=== PATIENT | male | born 1930 | race Caucasian/White ===

== ENCOUNTER 2018-07-25 14:07 | Inpatient (IN) | payer OTHER ==
[~2018-07-25] VITALS: Ht 167.6 cm; Wt 104.5 kg
--- NOTE | 2018-07-25 14:49 | NUR ---
PATIENT BIBA ALS FROM FACILITY FOR C/O PALPITATIONS AND NAUSEA 45 MIN [facility] [facility]. PATIENT WAS IN REHAB FACILITY POST TC. PATIENT DOES HAVE A C-COLLAR ON. PATIENT DOES HAVE A PICC LINE AND PER PATIENT, PICC LINE HAS BEEN IN USE OF THIS MORNING. PATIENT HAS HX OF A-FIB, DOES HAVE A CARDIAC PACER. PER MEDIC, PATIENT INITIALLY HAD TACHYCARDIA WITH PALPITATIONS AND FEVER, UPON ASSESSMENT PATIENT IS IS AT HR 85 AND TEMP WNL. BREATHING IS E/U BILATERAL CHEST RISE. BED SET AT LOWEST LEVEL. DAUGHTERS ALL AT BEDSIDE. AWAITING MSE
--- NOTE | 2018-07-25 14:53 | NUR ---
DR. MARS AT BEDSIDE PERFORMED MSE
--- NOTE | 2018-07-25 16:02 | NUR ---
ACCESSED PICC LINE. WAS ABLE TO FLUSH FLUIDS WITH NO SIGNS OF INFILTRATION. ASHLEY BLOOD FROM PICC LINE. PATIENT TOLERATED WELL
[2018-07-25 16:13] LABS: microscopic required? NO
[2018-07-25 16:21] LABS: BASOPHIL % 0.5 % (0-2); PLATELET COUNT 278 x10^3mcL (130-400)
[2018-07-25 16:21] LABS: UA SPECIFIC GRAVITY 1.015 (1.005-1.035); urine erythrocyte NEGATIVE (NEGATIVE)
[2018-07-25 16:22] LABS: RED CELL DISTRIBUTION WIDTH 15.8 % (11.5-14.5)
[2018-07-25 16:32] LABS: CALCIUM 8.9 mg/dL (8.5-10.1); CARBON DIOXIDE 29.8 mmol/L (21-32); CHLORIDE SERUM 104 mmol/L (98-107); CREATININE SERUM 0.8 mg/dL (0.7-1.3); GLUCOSE SERUM 125 mg/dL (74-106); POTASSIUM SERUM 4.3 mmol/L (3.5-5.1); SODIUM SERUM 142 mmol/L (136-145)
[2018-07-25 16:44] LABS: ALKALINE PHOSPHATASE 78 U/L (46-116); ALT/SGPT 25 U/L (16-63); AST/SGOT 21 U/L (15-37); BILIRUBIN TOTAL 0.49 mg/dL (0.20-1.00); HDL CHOLESTEROL 47 mg/dL (40-60); LIPASE 672 IU/L (73-393)
[2018-07-25 16:49] LABS: ALBUMIN 2.9 g/dL (3.4-5.0); AMYLASE 158 U/L (25-115); CHOLESTEROL 109 mg/dL (<200)
[2018-07-25 17:47] LABS: AMPHETAMINE QUAL UR NONE DETECTED (See below)
[2018-07-25] MEDS ORDERED: DURAGESIC100 MCG/HR TOP (18:05)
[2018-07-25] MEDS ORDERED: ACIDOPHILUS1 EAC2 PO (18:05)
[2018-07-25] MEDS ORDERED: TOPROL XL25 MG PO (18:06)
[2018-07-25] MEDS ORDERED: LIDODERM51 TOP (18:06)
[2018-07-25] MEDS ORDERED: LIPITOR40 MG PO (18:06)
[2018-07-25] MEDS ORDERED: MIRALAX17 GM PO (18:06)
[2018-07-25] MEDS ORDERED: PREVACID30 M2 PO (18:07)
[2018-07-25] MEDS ORDERED: NAMENDA10 M2 PO (18:07)
[2018-07-25] MEDS ORDERED: PEPCID20 MG PO (18:07)
[2018-07-25] MEDS ORDERED: XALATAN2.5 ML OU (18:08)
[2018-07-25] MEDS ORDERED: LOV40I SQ (18:08)
[2018-07-25] MEDS ORDERED: THERA-M W/MINER1 TAB PO (18:08)
[2018-07-25] MEDS ORDERED: DICLOFENAC SOD2.5 ML TOP (18:09)
[2018-07-25] MEDS ORDERED: VITAMIN C500 M6 PO (18:09)
[2018-07-25] MEDS ORDERED: ANTACID ULTRA PO (18:10)
[2018-07-25] MEDS ORDERED: FLEET ENEMA135 ML RC (18:11)
[2018-07-25] MEDS ORDERED: DULCOLAX10 M1 RC (18:11)
[2018-07-25] MEDS ORDERED: MAALOX ADVANCE355 ML PO (18:12)
[2018-07-25] MEDS ORDERED: HYDRALAZINE HCL25 MG PO (18:12)
[2018-07-25] MEDS ORDERED: GOOD NEIGH1200 MG/15 PO (18:13)
[2018-07-25] MEDS ORDERED: APAP325 MG PO (18:13)
[2018-07-25] MEDS ORDERED: HYDROCODONE BITA PO (18:14)
--- NOTE | 2018-07-25 18:22 | NUR ---
PT RESTING AT BEDSIDE IN NAD. BREATHING E/U, BILATERAL CHEST RISE. BED AT LOWEST POSITION. PATIENT REQUESTED THE HOB TO BE UP 10 DEGREES FOR COMFORT. PATIENT STS 0/10. STS THE C-COLLAR IS TOLERABLE. HAS BEEN AT BEDSIDE. LIGHTS DIMMED TO PROMOTE PATIENT COMFORT
--- NOTE | 2018-07-25 19:02 | NUR ---
REPORT OFF TO JHONATAN, RN
--- NOTE | 2018-07-25 19:11 | NUR ---
RECEIVED PATIENT AWAKE, ALERT, DENIES PAIN, PALPITATIONS OR DISCOMFORT. C-COLLAR IN PLACE. RESPIRATIONS EVEN AND UNLABORED. SAFETY PRECAUTIONS IN PLACE.
[2018-07-25 19:31] LABS: MAGNESIUM 1.5 mg/dL (1.8-2.4)
[2018-07-25 19:36] LABS: CHOLESTEROL/HDL RATIO 2.4
--- NOTE | 2018-07-25 20:01 | NUR ---
REPORT GIVEN TO SAY BLAIR, ALL QUESTIONS AND CONCERNS WERE ADDRESSED.
--- NOTE | 2018-07-25 20:13 | NUR ---
RECEIVED PT FROM ED VIA NICOLASA, CAME IN DUE TO PALPITATIONS. AAOX4. DENIES HEADACHE/DIZZINESS. ABLE TO FOLLOW COMMANDS. DENIES NUMBNESS/TINGLING SENSATION ON THE EXTREMITIES. NO SOB NOTED, LUNG SOUNDS CTA. ON 2LPM/NC, O2 SAT=99%. DENIES CHEST PAIN/PRESSURE, AFIB W/ BBB, ELEVATED ST, PACED ON DEMAND. W/ LEFT CHEST PACEMAKER ([employer]). W/ +1 EDEMA ON BLE. WEAK PEDAL PULSES. VOIDS. DENIES ABDOMINAL DISCOMFORT. BOWEL SOUNDS ACTIVE. W/ BROWN DISCOLORATIONS ON BLE AND STERIS-TRIPS ON THE UPPER MID-BACK, PT STATED THAT THE SUTURES WERE JUST REMOVED FEW DAYS AGO. W/ RIGHT UPPER CHEST DUAL-PORT POWER PICC LINE. W/ CERVICAL NECK COLLAR. ABLE TO MOVE ALL EXTREMITIES. SIDE RAILS UPX2. CALL LIGHT ON REACH. HOB ELEVATED AT 20 DEG. PRIMARY NURSE SAY AT BEDSIDE FOR CONTINUITY OF CARE
[2018-07-25 20:39] VITALS: BP 125/62
[2018-07-25 20:48] VITALS: Ht 167.6 cm; Wt 104.5 kg
[2018-07-25 21:00] VITALS: BP 125/62
--- NOTE | 2018-07-25 21:27 | NUR ---
PT REFUSED LASIX IVP AT THIS TIME STATING, "MAKE SURE IT'S ONLY 10 OR ELSE I'LL BE IN [place], I HAVE KIDNEY ISSUES." DR. URENA PAGED, WILL ANTICIPATE CALL BACK
--- NOTE | 2018-07-25 22:02 | NUR ---
SPOKE WITH PHARMACY REGARDING DAPTOMYCIN ORDERED FOR PT. PER PHARMACY, ONLY 1 VIAL AVAILABLE IN STOCK, [address] URENA REGARDING THIS. DR. URENA PAGED, WILL ANTICIPATE CALL BACK
--- NOTE | 2018-07-25 23:10 | NUR ---
PT'S ABLE TO RETRIEVE SOFT NECK COLLAR FROM TRELLIS. HARD NECK COLLAR REMOVED AND SOFT NECK COLLAR PLACED ON PT WITHOUT ISSUE. PER PT, HARD COLLAR TO BE USED ONLY WHEN OOB OR UP WITH P.T. NEXT COLLAR TO BE USED ONLY WHEN LAYING IN BED
--- NOTE | 2018-07-25 23:11 | NUR ---
PER PT'S AND DAUGHTER AT BEDSIDE, PT WAS PREVIOUSLY ON VANCO BUT WAS EXPERIENCING INCREASED BUN AND CREATININE LEVELS. FAMILY REFUSED VANCO AT THIS TIME. DR. URENA MADE AWARE.
--- NOTE | 2018-07-25 23:17 | NUR ---
SPOKE WITH PHARMACY AGAIN AND THEY STATED THERE WAS A MIX UP REGARDING DOPTAMYCIN AND THAT IT IS ACTUALLY AVAILABLE AT THIS TIME. WILL UPDATE DR. URENA
--- NOTE | 2018-07-25 23:34 | NUR ---
DR. URENA MADE AWARE TO D/C LEVY AT THIS TIME, WILL ANTICIPATE. PT ALSO REFUSING DAPTOMYCIN ORDERED AT 2200 STATING HE WAS ALREADY GIVEN A DOSE AT 1000 EARLIER THIS MORNING. PT REQUESTING TO HAVE TIME CHANGED TO EVERY 1000. DR. URENA MADE AWARE
--- NOTE | 2018-07-26 01:40 | NUR ---
PT'S TRINA, CALLED AND REQUESTED UPDATE ON PT. TRINA MADE AWARE THAT PT HAS BEEN ASLEEP, NO ACUTE DISTRESS OBSERVED SINCE SHE LEFT. TRINA EXPRESSED CONCERN REGARDING PT'S LEG EDEMA. TRINA MADE AWARE THAT PT REFUSED ORDERED LASIX 40 MG IVP EARLIER AND THAT HE WILL BE STARTED ON LASIX 10 MG IV IN THE MORNING. ALL QUESTIONS AND CONCERNS ADDRESED AT THIS TIME
--- NOTE | 2018-07-26 01:45 | NUR ---
SPOKE WITH [facility] REGARDING PT'S REQUEST TO BE PLACED ON CPAP AT THIS TIME.
--- NOTE | 2018-07-26 01:55 | NUR ---
PT BREATHING ON CPAP AT THIS TIME, NO RESP DISTRESS OBSERVED, BREATHING EVEN AND UNLABORED. CALL LIGHT WITHIN REACH. WILL CONTINUE TO MONITOR
--- NOTE | 2018-07-26 05:46 | NUR ---
PT'S BEDSIDE BLOOD SUGAR THIS MORNING, 98. PT REQUESTED JUICE STATING, "I DON'T LIKE IT WHEN IT GOES BELOW 100." ORANGE JUICE PROVIDED AND PT DRANK ENTIRE CUP. ADVISED PT STILL NPO DUE TO PANCREATITIS, VERBALIZED UNDERSTANDING.
[2018-07-26 06:19] LABS: CALCIUM 8.2 mg/dL (8.5-10.1); CARBON DIOXIDE 29.2 mmol/L (21-32); CHLORIDE SERUM 105 mmol/L (98-107); CREATININE SERUM 0.8 mg/dL (0.7-1.3); GLUCOSE SERUM 116 mg/dL (74-106); SODIUM SERUM 141 mmol/L (136-145)
[2018-07-26 06:22] LABS: MAGNESIUM 2.1 mg/dL (1.8-2.4)
[2018-07-26 06:28] VITALS: BP 127/69
[2018-07-26 06:29] LABS: BASOPHIL % 0.6 % (0-2); PLATELET COUNT 242 x10^3mcL (130-400)
[2018-07-26 06:39] LABS: RED CELL DISTRIBUTION WIDTH 15.7 % (11.5-14.5)
--- NOTE | 2018-07-26 07:30 | NUR ---
RECEIVED PT FROM LEAD ELECTRICAL ENGINEER RN. Lindsay/JOSÉ. TELE#7. PT ON CPAP. NO ACUTE RESP DISTRESS NOTED. DENIES ANY PAIN AT THIS TIME. SOFT NECK COLLAR IN PLACE. RT SUBCLAVIAN TUNNELED CATH IN PLACE TKO. +1 EDEMA NOTED TO BLE. AIR MATTRESS IN PLACE. WILL CONTINUE TO MONITOR. CALL LIGHT IN REACH. BED IN LOWEST POSITION.
[2018-07-26 08:04] VITALS: BP 110/71
[2018-07-26 12:18] VITALS: BP 126/64
--- NOTE | 2018-07-26 12:19 | NUR ---
DUE MEDS GIVEN. FENTANYL PATCH APPLIED TO RIGHT UPPER BACK. LATINEX HELD DUE TO NPO STATUS. PT IS CALM AND COOPERATIVE. RESP EVEN AND UNLABORED. NO S/S OF RESP DISTRESS NOTED. PT DENIES PAIN OR DISCOMFORT AT THIS TIME. DAUGHTER AT BEDSIDE. BED IN LOW POSITION. CALL LIGHT WITHIN REACH.
--- NOTE | 2018-07-26 12:38 | NUR ---
SPOKE WITH FAMILY REGARDING PT CARE. FAMILY WANTED TO SPEAK WITH DR. WARNER REGARDING PT CARE. DR. WARNER SPEAKING WITH FAMILY OVER THE PHONE TO UPDATE. ON POC.
--- NOTE | 2018-07-26 13:39 | NUR ---
SPOKE WITH LAB. BLOOD CULTURE POSITIVE FOR GRAM NEGATIVE CLAU. DR. WARNER PAGED, AWAITING CALL BACK.
--- NOTE | 2018-07-26 13:41 | NUR ---
DR. WARNER MADE AWARE OF POSITIVE BLOOD CULTURE.
--- NOTE | 2018-07-26 15:12 | NUR ---
PT SITTING UP IN BED. RESPOSITIONS TO LT SIDE BY FLAME ANNEALING MACHINE SETTER. RESPIRATIONS EQUAL AND UNLABORED ON RA. DENIES ANY SOB. PT C/O PAIN 12/26 TO NECK OPERATIVE SITE. GIVEN NORCO PO. WILL REASSESS PAIN. WILL CONTINUE TO MONITOR. CALL LIGHT IN REACH. BED IN LOWEST POSITION.
--- NOTE | 2018-07-26 16:13 | NUR ---
PT SITTING UP IN BED`
--- NOTE | 2018-07-26 16:13 | NUR ---
PT SITTING UP IN BED. RESPIRATIONS EQUAL AND UNLABORED ON RA. DENIES SOB. PT STATES PAIN IS NOW 7/10. PT STATES HIS PAIN IS CONSTANT BUT TOLERABLE. SOFT CERIVAL COLLAR IN PLACE. PT GIVEN URINAL. 130 ML OF CLEAR YELLOW URINE OUT. WILL CONTINUE TO MONITOR. CALL LIGHT IN REACH. BED IN LOWEST POSITION.
[2018-07-26 16:26] VITALS: BP 137/57
--- NOTE | 2018-07-26 18:28 | NUR ---
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 EYEDROPS WERE TAKEN TO PHARMACY. PER PHARMACIST GAUDENCIO THEY WILL BRING UP EYEDROPS AND PUT THEM IN REFRIDGERATOR.
--- NOTE | 2018-07-26 18:49 | NUR ---
PT SITITNG UP IN BED AND DAUGHTERS AT BEDSIDE. NO ACUTE RESP DISTRESS NOTED. IV PATENT AND INFUSING TKO. PT ASKING FOR ORANGE JUICE. PT STATES "MY BLOOD SUGAR IS TOO LOW AND I LIKE TO HAVE ORANGE JUICE TO BRING IT UP". GIVEN SMALL CUP OF ORANGE JUICE. SOFT CERVICAL COLLAR IN PLACE. WILL ENDORSE TO COMMANDING OFFICER GARAGE RN. CALL LIGHT IN REACH. BED IN LOWEST POSITION.
--- NOTE | 2018-07-26 19:45 | NUR ---
RECEIVED PT LAYING IN BED, NO ACUTE DISTRESS OBSERVED, PT'S DAUGHTER AND SON IN LAW AT BEDSIDE. AA/OX4, ABLE TO MAKE NEEDS KNOWN, SPEECH CLEAR AND APPROPRIATE. PACED ON DEMANDS TO TELE #29, DENIES CP, PACEMAKER TO L UPPER CHEST WALL. WEAK PEDAL PULSES, +1 EDEMA TO BLE. BREATING ON 2L NC, PT'S BASELINE, EVEN AND UNLABORED, DENIES SOB OR DYSPNEA, LUNGS CTA. PT USES CPAP AT NIGHT WHILE SLEEPING. ABD ROUND AND SOFT, NONTENDER, DENIES N/V/D. NPO DAY #2 DUE TO PANCREATITIS. FREELY VOIDS URINE, URINAL AT BEDSIDE AND WITHIN REACH. GENERALIZED WEAKNESS NOTED, S/P NECK SURGERY IN APRIL, SOFT NECK COLLAR IN PLACE WHILE IN BED. W/C BOUND AT BASELINE, P.T. EVAL PENDING. SURGICAL INCISION TO MID UPPER BACK WITH STERISTRIPS, CDI, PT STATED HE HAD SUTURES REMOVED A FEW DAYS AGO, NO S&S OF INFECTION OBSERVED. COMFORT AND SAFETY MEASURES IN PLACE, BED IN LOWEST POSITION WITH SIDE RAILS UPX2. CALL LIGHT WITHIN REACH. WILL CONTINUE TO MONITOR
[2018-07-26 21:20] VITALS: BP 152/78
--- NOTE | 2018-07-26 21:45 | NUR ---
ALL PO MEDS GIVEN WITHOUT INCIDENT. PT PREFERED ALL PO MEDS TO BE CRUSHED AND GIVEN WITH PUDDING. ASPIRATION PRECAUTIONS UTILIZED. NO ACUTE DISTRESS OBSERVED. CALL LIGHT WITHIN REACH. WILL CONTINUE TO MONITOR
--- NOTE | 2018-07-26 22:03 | NUR ---
TAHIR, RT AT BEDSIDE. PT PLACED ON CPAP, NO ACUTE DISTRESS OBSERVED. BREATHING EVEN AND UNLABORED. CALL LIGHT WITHIN REACH. WILL CONTINUE TO MONITOR
--- NOTE | 2018-07-26 23:04 | NUR ---
300 ML CLEAR URINE OUTPUT NOTED AND EMPTIED VIA URINAL. URINAL AT BEDSIDE AND WITHIN REACH
[2018-07-27 05:21] VITALS: BP 157/84
--- NOTE | 2018-07-27 06:12 | NUR ---
NO SIGNIFICANT CHANGES TO REPORT, PT COMPLIED WITH NURSING CARE THROUGHOUT THE SHIFT WITH NO ACUTE EVENTS OVERNIGHT. NO ACUTE DISTRESS OBSERVED AT THIS TIME, PT LAYING IN BED, BREATHING EVEN AND UNLABORED ON CPAP. COMFORT AND SAFETY MEASURES MAINTAINED. ALL NEEDS ASSESSED AND ATTENDED TO. CALL LIGHT WITHIN REACH. WILL CONTINUE TO MONITOR AND ENDORSE CARE TO DAY SHIFT NURSE
--- NOTE | 2018-07-27 06:12 | NUR ---
NO SIGNIFICANT CHANGES TO REPORT, PT COMPLIED WITH NURSING CARE THROUGHOUT THE SHIFT WITH NO ACUTE EVENTS OVERNIGHT. NO ACUTE DISTRESS OBSERVED AT THIS TIME, PT LAYING IN BED, BREATHING EVEN AND UNLABORED ON CPAP. COMFORT AND SAFETY MEASURES MAINTAINED. ALL NEEDS ASSESSED AND ATTENDED TO. CALL LIGHT WITHIN REACH. SITTER REMAINS AT BEDSIDE TO ENSURE SAFETY. WILL CONTINUE TO MONITOR AND ENDORSE CARE TO DAY SHIFT NURSE
[2018-07-27 06:13] LABS: BASOPHIL % 0.6 % (0-2); PLATELET COUNT 235 x10^3mcL (130-400)
[2018-07-27 06:22] LABS: AMYLASE 84 U/L (25-115); CALCIUM 8.2 mg/dL (8.5-10.1); CHLORIDE SERUM 106 mmol/L (98-107); CREATININE SERUM 0.8 mg/dL (0.7-1.3); GLUCOSE SERUM 99 mg/dL (74-106); LIPASE 275 IU/L (73-393); MAGNESIUM 1.9 mg/dL (1.8-2.4); PHOSPHOROUS 3.6 mg/dL (2.5-4.9); POTASSIUM SERUM 3.6 mmol/L (3.5-5.1); SODIUM SERUM 142 mmol/L (136-145)
[2018-07-27 06:44] LABS: RED CELL DISTRIBUTION WIDTH 16.1 % (11.5-14.5)
--- NOTE | 2018-07-27 08:00 | NUR ---
SHIFT ASSESSMENT DONE. PATIENT ALERT/ORIENTED X3; DEMANDING. 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 HR = 83; NO S/S OF CHEST PAIN. ON C-PAP. O2 SAT 100%. NO RESP DSITRESS ON RA. OBESE. BED RESTING. SOFT COLLOR INPLACE. INCISION TO BACK NECK HEALED. NO DRAINAGE NOTED. EDEMA TO BLE 1+. SCD BLE. AIR MATTRESS ON. IVF OF D5NS 50 CC/HR VIA PICC LINE TO RIJ. SITE W/ DRSS INTACT. NO REDNESS/SWELLING SEEN. DENIED PAIN. VOID VIA URINAL. CALL LIGHT IN REACH. CONTACT ISOLATION FOR HX OF MRSE (+) NARES.
[2018-07-27 09:52] VITALS: BP 146/81
[2018-07-27 13:14] VITALS: BP 152/86
[2018-07-27 17:27] VITALS: BP 143/88
--- NOTE | 2018-07-27 18:10 | NUR ---
VOID X8 VIA URINAL AFTER LASIX GIVEN. HAD BM X1 THIS SHIFT. BLE EDEMA SUBSIDING. NO SOB THIS SHIFT. TOLERATED FULL LIQUID DIET FOOD. NO N/V. DENIED ABD PAIN NOW. IVHL'D PER ORDER. ENDORSED CARE TO NOC NURSE.
--- NOTE | 2018-07-27 19:30 | NUR ---
RECEIVED PT LAYING IN BED, NO ACUTE DISTRESS OBSERVED. AA/OX4, ABLE TO MAKE NEEDS KNOWN, SPEECH CLEAR AND APPROPRIATE. PACED ON DEMAND TO TELE #29, DENIES CP, PACEMAKER TO L UPPER CHEST WALL. WEAK PEDAL PULSES, +1 EDEMA TO BLE. BREATING ON 2L NC, PT'S BASELINE, EVEN AND UNLABORED, DENIES SOB OR DYSPNEA, LUNGS CTA. PT USES CPAP AT NIGHT WHILE SLEEPING. ABD ROUND AND SOFT, NONTENDER, DENIES N/V/D. ADVANCED TO FULL LIQUID DIET TODAY, TOLERATING WELL. FREELY VOIDS URINE, URINAL AT BEDSIDE AND WITHIN REACH. GENERALIZED WEAKNESS NOTED, S/P SPINAL SURGERY IN APRIL, SOFT NECK COLLAR IN PLACE WHILE IN BED. W/C AND FWW AT BASELINE, UP WITH P.T. SURGICAL INCISION TO MID UPPER BACK WITH STERISTRIPS, CDI, PT STATED HE HAD SUTURES REMOVED A FEW DAYS AGO, NO S&S OF INFECTION OBSERVED. COMFORT AND SAFETY MEASURES IN PLACE, BED IN LOWEST POSITION WITH SIDE RAILS UPX2. CALL LIGHT WITHIN REACH. WILL CONTINUE TO MONITOR
--- NOTE | 2018-07-27 20:26 | NUR ---
DR. TOUSSAINT IN TO SEE PT. PER DR. TOUSSAINT, PT'S PICC LINE NEEDS TO BE REMOVED DUE TO BLOOD CULTURE RESULTS OF GRAM NEGATIVE BACILI. DR. TOUSSAINT WILL UPDATE RESIDENT TEAM
[2018-07-27 21:02] VITALS: BP 113/77
--- NOTE | 2018-07-27 21:05 | NUR ---
PT'S , TRINA AND STEPDAUGHTER, TRUE, AT BEDSIDE. PLAN OF CARE AND UPDATE GIVEN ON PT. ALL QUESTIONS AND CONCERNS ADDRESSED.
--- NOTE | 2018-07-27 22:10 | NUR ---
RT AT BEDSIDE, PLACING PT ONTO CPAP REQUESTED. NO ACUTE DISTRESS OBSERVED. BREATHING EVEN AND UNLABORED. CALL LIGHT WITHIN REACH. WILL CONTINUE TO MONITOR
[2018-07-28 05:33] VITALS: BP 124/71
[2018-07-28 06:28] LABS: CALCIUM 8.3 mg/dL (8.5-10.1); CARBON DIOXIDE 29.8 mmol/L (21-32); CHLORIDE SERUM 104 mmol/L (98-107); CREATININE SERUM 0.9 mg/dL (0.7-1.3); GLUCOSE SERUM 123 mg/dL (74-106); POTASSIUM SERUM 3.6 mmol/L (3.5-5.1); SODIUM SERUM 136 mmol/L (136-145)
[2018-07-28 07:51] LABS: PLATELET COUNT 135 x10^3mcL (130-400); RED CELL DISTRIBUTION WIDTH 13.8 % (11.5-14.5)
--- NOTE | 2018-07-28 08:00 | NUR ---
SHIFT ASSESSMENT DONE. PATIENT ALERT/ORIENTED X4. DEMANDING ON CARES. TELE#29, SR W/ 1ST DEGREE AVB AND BBB AND PVC'S. PACE MAKER TO L UPPER CHEST WALL. PACED ON DEMAND. NO RESPDISTRESS ON RA. O2 SAT 97%. PATIENT USED C PAP AT NIGHT. FINISHED 60% OF FULL LIQUID DIET BREAKFAST. HAD BM YESTERDAY. VOID VIA URINAL. EDEMA TO BLE SUBSIDING FROM 2+ TO TRACE. PULSES PALPABLE. IVHL'D. PICC LINE OT RT UPPER CHEST WALL W/ DRSG INTACT. NO REDNESS/SWELLING/DRAIANGE NOTED. INCISION TO BACK OF NECK HEALED. MACHINE I COREMAKER. SOFT NECK COLLOR IN PLACE. FENTANYL PATCH AND LIDODERM PATCH APPLIED. DENIED PAIN NOW. ON AIR MATTRESS. BED RESTING AND OUT OF BED W/ P.T. CALL LIGHT IN REACH.
[2018-07-28 09:50] VITALS: BP 137/76
[2018-07-28 10:31] VITALS: BP 124/71
[2018-07-28 12:49] LABS: BAND NEUTROPHIL 1 % (0-10); BASOPHIL 1 % (0-2); MONOCYTE 3 % (0-7); SEGMENTED NEUTROPHILS 91 % (37-75)
[2018-07-28 12:50] LABS: PLATELET MORPHOLOGY PLATELETS DECREASED; rbc morphology (normal/abnorm) NORMAL (NORMAL)
[2018-07-28 13:59] VITALS: BP 118/60
--- NOTE | 2018-07-28 15:17 | NUR ---
PATIENT WENT TO OR FOR ABBOTT CATHETER REMOVAL. CONSENT SIGNED.
--- NOTE | 2018-07-28 16:00 | NUR ---
RECEIVED PATIENT FROM OR AFTER ABBOTT CATH REMOVAL. SITE CLEAN AND CLOSED W/ PERMABAND. NEW IV INSERTED TO LFA W/ 22G BY OR NURSE, V/S = [id number]/79. O2 SAT 94% ON RA. DENIED PAIN. AT BED SIDE.
--- NOTE | 2018-07-28 16:28 | NUR ---
PATIENT REFEUSED PHYSICAL THERAPY SESSION FOR TODAY
[2018-07-28 18:14] VITALS: BP 108/60
--- NOTE | 2018-07-28 18:18 | NUR ---
DENIED PAIN. TOLERATED FULL LIQUID DIET. BLOOD CULTURE WITH JOSELINE MIR. DR. ORACIO SALAS AND WAITING FOR CALL BACK,
--- NOTE | 2018-07-28 20:21 | NUR ---
Awake and verbally responsive. No respiratory distress noted on room air. Denies pain at this time. Denies n/v. Wearing soft collar. Denies numbness or tingling sensation on all extremities. Generalized weakness noted. Will cont.to monitor. Call light within reach.
[2018-07-28 20:39] VITALS: BP 104/52
--- NOTE | 2018-07-29 04:03 | NUR ---
Afebrile. No significant change in condition noted. Denies pain. CPAP in use. Soft collar intact. Slept well. In no apparent distress.
[2018-07-29 05:43] VITALS: BP 134/74
--- NOTE | 2018-07-29 07:06 | NUR ---
Bedside handoff report given to ROSSY Gresham
--- NOTE | 2018-07-29 07:30 | NUR ---
TOOK PT OFF BIPAP AND REPOSITIONED FOR BREAKFAST. DENIES PAIN AT THIS TIME. TELE # 29 PACED ON DEMAND, PVC'S, BBB. SL TO LEFT FA. ALERT AND ORIENTED. [place]. HAS WEARING AIDS AT BEDSIDE. CALL LIGHT WITHIN REACH. REQUIRES MOD ASSIST WITH ALL ADL'S.
[2018-07-29 10:28] VITALS: BP 134/76
[2018-07-29 13:40] VITALS: BP 135/77
[2018-07-29 17:23] VITALS: BP 136/73
--- NOTE | 2018-07-29 19:45 | NUR ---
PT SEEN, RESTING IN BED, HOB, ALERT AND ORIENTED, DENIES HEADACHE OR DIZZINESS, [place], BREATHING EVEN AND UNLABORED, LUNG SOUNDS CLEAR BUT DIMINISHED AT BASE, ON O2 2L VIA NC, CPAP AT NIGHT, SL TO LFA, PULSES PALPABLE, EDEMA NOTED TO BLE, GENERALIZED WEAKNESS, SOFT COLLAR NECK WHILE PT IN BED, ABD SOFT AND ROUND WITH ACTIVE BS, NO BM AT THIS TIME, VOIDING FREELY WITH URINAL, BLE WITH DISCOLORATION, SURGICAL INCISION TO BACK OF NECK KATHI, ON AIR MATTRESS, NO DISTRESS NOTED, WILL KEEP TO MONITOR.
--- NOTE | 2018-07-29 19:57 | NUR ---
ALERT AND ORIENTED. BREATHING FREELY ON RA THIS SHIFT. ON GOING INTERMITTENT NECK AND SHOULDER PAIN. LIDOCAINE PATCHES TO SHOULDERS. WILL BE GOING TO SNF FOR CONTINUES IV ABX AND P.T. CALL LIGHT WITHIN REACH.
[2018-07-29 21:00] VITALS: BP 143/75
[2018-07-30 04:56] VITALS: BP 138/74
--- NOTE | 2018-07-30 05:26 | NUR ---
PT AWAKE AND RESTING IN BED, SLEPT MOST OF NIGHT, BREATHING EVEN AND UNLABORED ON CPAP WITH FIO2:28%, SL TO LFA, VOIDING FREELY WITH URINAL, MORNING BLOOD SUGAR-95 MG/DL WITH NO RISS, NO DISTRESS NOTED, WILL KEEP TO MONITOR.
[2018-07-30 06:38] LABS: CARBON DIOXIDE 30.3 mmol/L (21-32); CHLORIDE SERUM 102 mmol/L (98-107); CREATININE SERUM 0.9 mg/dL (0.7-1.3); GLUCOSE SERUM 97 mg/dL (74-106); POTASSIUM SERUM 4.1 mmol/L (3.5-5.1); SODIUM SERUM 140 mmol/L (136-145)
[2018-07-30 06:47] LABS: BASOPHIL % 0.8 % (0-2); PLATELET COUNT 241 x10^3mcL (130-400)
[2018-07-30 06:55] LABS: RED CELL DISTRIBUTION WIDTH 15.5 % (11.5-14.5)
--- NOTE | 2018-07-30 08:00 | NUR ---
ALERT AND ORIENTED. REMOVED FROM CPAP. REPOSITIONED FOR BREAKFAST. DENIES ANY PAIN. TELE # 29 PACAED ON DEMAND, PVC'S, BBB, 1ST DEGREE AV BLOCK. SL TO LEFT FA BECOMING DIFFICULT TO FLUSH. WILL NEED NEW IV SITE. ASSIST WITH ALL ADL'S. CALL LIGHT WITHIN REACH. WEARING SCD'S.
--- NOTE | 2018-07-30 08:20 | NUR ---
PHYSICAL THERAPY DAILY NOTES CO-SIGN All documentation done by the Manager Star for 07/30/18 has been reviewed. I agree with the documentation. Reviewed/Co-Signed by: Kala Mae PT Documentation Done by:WOLF JEROME PTA FOR THE DATE 07/29/18
[2018-07-30 09:29] VITALS: BP 151/55
[2018-07-30] MEDS ORDERED: LEVAQUIN750 MG PO (12:27)
[2018-07-30] MEDS ORDERED: CUBICIN500 MG IV (12:29)
[2018-07-30 13:08] VITALS: BP 151/55
[2018-07-30 13:09] VITALS: BP 149/75
--- NOTE | 2018-07-30 15:16 | NUR ---
PATIENT TO TRANSFER TO [facility] TODAY AT 17:30.
--- NOTE | 2018-07-30 16:38 | NUR ---
PT WILL BE GOING TO [facility] BY PEGGY. RM 34 REPORT GIVEN TO JAROD GOLDSMITH [phone].
[2018-07-30 16:45] VITALS: BP 125/59
--- NOTE | 2018-07-30 18:15 | NUR ---
PEGGY TOOK PT BACK TO [facility] FOR IV ABX AND P.T. TELE # 29 RETURNED TO TELE STATION. IV RETAINED. PTS SIGNED ALL PAPERS AT PTS REQUEST. TOOK ALL BELONGINGS. 1 HEARING AID INPTS EAR 1 TAKEN HOME WITH . 1700 DOSE OF LEVAQUIN INFUSED.
--- NOTE | 2018-07-31 08:01 | NUR ---
PHYSICAL THERAPY DAILY NOTES CO-SIGN All documentation done by the Disassembler for 07/31/18 has been reviewed. I agree with the documentation. Reviewed/Co-Signed by: Kala Mae PT Documentation Done by:WOLF JEROME PTA COSIGN FOR 07-30-18
== END 2018-07-30 18:25 | DRG 438 ==
LOC: ED 14:07 → DU 18:36
PROVIDERS: Emergency Medicine; General Practice; ADMIT Internal Medicine
DX: K85.90 Acute pancreatitis without necrosis or infection, unspecified (principal); N17.0 Acute kidney failure with tubular necrosis; I50.43 Acute on chronic combined systolic (congestive) and diastolic (congestive) heart failure; E44.0 Moderate protein-calorie malnutrition; I13.0 Hypertensive heart and chronic kidney disease with heart failure and stage 1 through stage 4 chronic kidney disease, or unspecified chronic kidney disease; D68.69 Other thrombophilia; I11.0 Hypertensive heart disease with heart failure; Z98.1 Arthrodesis status; N18.3 Chronic kidney disease, stage 3 (moderate); E11.22 Type 2 diabetes mellitus with diabetic chronic kidney disease; E11.65 Type 2 diabetes mellitus with hyperglycemia; G89.29 Other chronic pain; M54.5 Low back pain; E83.42 Hypomagnesemia; G47.33 Obstructive sleep apnea (adult) (pediatric); F03.90 Unspecified dementia, unspecified severity, without behavioral disturbance, psychotic disturbance, mood disturbance, and anxiety; Z95.0 Presence of cardiac pacemaker; Z68.37 Body mass index [BMI] 37.0-37.9, adult; Z85.46 Personal history of malignant neoplasm of prostate; Z85.038 Personal history of other malignant neoplasm of large intestine; Z79.84 Long term (current) use of oral hypoglycemic drugs
CPT/HCPCS: 82962; 83880; 97110-GP; 97116-GP; J0878; J1815; J1940; J1956; J2001; J2543; J3475; J7030; Q0092